=== PATIENT | female | born 1960 | race Caucasian/White ===

== ENCOUNTER 2016-11-23 17:21 | Emergency (ER) | payer BC ==
[~2016-11-23 17:21] MED LIST: ALDACTONE25 MG PO; ALPRAZOLAM0.5 MG PO; AMITRIPTYLINE H25 MG; ATENOLOL100 MG PO; ATENOLOL50 MG; BACTRIM DS TAB1 EACH PO; BACTRIM DS1 TAB PO; BENZONATATE200 MG PO; CELEXA40 MG PO; DARVOCET-N 1001 TAB; DEXILANT60 MG PO; DYNACIN100 MG; ELAVIL25 MG PO; LANOXIN250 MCG; LEXAPRO20 MG; MAGNACAPS100 MG; MAGNESIUM; MAGNESIUM OXID400 MG PO; MAXZIDE 75/50 T1 TAB; MAXZIDE PO; MINOCYCLINE HC100 MG PO; MOTRIN800 MG PO; PERCOCET 5/3251 TAB PO; RELPAX40 MG; SPIRONOLACTONE50 MG; TOPAMAX100 MG; TOPAMAX100 MG PO; ULTRAM50 MG PO; VIT B; VITAMIN B-2100 MG; VITAMIN D35000 UNI1 PO
[2016-11-23] MEDS ORDERED: AMITRIPTYLINE H25 M1 PO (18:16)
[2016-11-23] MEDS ORDERED: OMEPRAZOLE40 M2 PO (18:16)
[2016-11-23] MEDS ORDERED: MINOCIN100 M2 PO (18:16)
[2016-11-23] MEDS ORDERED: PROMETHAZINE PO (18:17)
== END 2016-11-23 20:40 ==
LOC: EDMED 17:21
DX: S06.0X9A Concussion with loss of consciousness of unspecified duration, initial encounter (principal); W20.8XXA Other cause of strike by thrown, projected or falling object, initial encounter; Y92.009 Unspecified place in unspecified non-institutional (private) residence as the place of occurrence of the external cause
CPT/HCPCS: J1885